=== PATIENT | female | born 1975 | race Caucasian/White ===

== ENCOUNTER 2021-04-16 13:13 | Emergency (ER) | payer BC ==
[~2021-04-16] VITALS: Ht 162.6 cm; Wt 159.0 kg
--- NOTE | 2021-04-16 13:44 | EKG ---
[address] [address] Test Date: 2021-04-16 Test Time: 13:24:37 Pat Name: WILLIAM FIELD Department: Room: Gender: F Nurse Researcher: MIC : 1975 Requested By: GLORIA AMBROCIO Order Number: [id number] Reading MD: Jeromy No MD Measurements Intervals Rudd Rate: 74 P: 34 VA: 164 QRS: 18 QRSD: 82 T: 62 QT: 380 QTc: 422 Interpretive Statements SINUS RHYTHM Electronically Signed On 04-18-2021 8:24:37 PET FEEDER by Jeromy No MD
[2021-04-16] MEDS ORDERED: ASPIRIN CHEWABLE 81 MG TABLET. PO ONE (13:45)
--- NOTE | 2021-04-16 13:45 | PHYS DOC ---
Past History Past Surgical History: , Tubal ligation Alcohol Use: None Adult General Chief Complaint Chief Complaint: CHEST PAIN HPI HPI Patient is a 46-year-old female presenting via POV for chest pain. Onset was approximately 1 hour prior. Patient reports she was cooking cinnamon rolls and waffles in her kitchen when she developed substernal chest tightness that "felt like someone was giving me a big hug". Nothing known made better or worse. Denies any short, ripping and/or tearing sensations. Reports episode lasted approximately 15 minutes before self resolving without intervention. Associated symptoms include diaphoresis, pallor, and nausea. Reports she took a full dose of aspirin and after discussing case with her , was transported to our facility for evaluation. On arrival, patient states she is anxious symptomatic but remains nervous. Admits she has primary care physician and has diagnosed history of hypothyroidism only but does not take medicine for this because she does not want to. Only major change in overall health was being diagnosed with COVID-19 1 month ago, she is unvaccinated. Denies any prior history of syncope with physical exertion, family history of early cardiac disease, or any tobacco, alcohol or illicit drug abuse Review of Systems Review of Systems Fourteen body systems of review of systems have been reviewed. See HPI for pertinent positives and negative responses, other whittaker all other systems are negative, non-pertinent or non-contributory Allergies Allergies Allergies Coded Allergies Type Severity Reaction Last Updated Verified No Known Drug Allergies 04/16/21 No Physical Exam Physical Exam Constitutional: Well developed, well nourished and morbidly obese, no acute distress, non-toxic appearance. HENT: Normocephalic, atraumatic, bilateral external ears normal, oropharynx moist, no oral exudates, nose normal. Eyes: PERRLA, EOMI, conjunctiva normal, no discharge. Neck: Normal range of motion, no tenderness, supple, no stridor. Cardiovascular: Heart rate regular, sinus rhythm, no murmurs rubs or gallops Lungs & Thorax: Bilateral breath sounds clear to auscultation Abdomen: Bowel sounds normal, soft and protuberant, no tenderness, no masses, no pulsatile masses. Nonsurgical abdomen, no peritoneal signs Skin: Warm, dry, no erythema, no rash. Back: No tenderness, no CVA tenderness. Extremities: No tenderness, no cyanosis, no clubbing, ROM intact, trace pitting edema to bilateral lower extremities and otherwise extremely massive lower extremities Neurologic: Alert and oriented X 3, grossly normal motor & sensory function, no focal deficits noted. Psychologic: Anxious affect and mood Current Patient Data Vital Signs Vital Signs Date Time Temp Pulse Resp B/P (MAP) Pulse Ox O2 Delivery O2 Flow Rate FiO2 04/16/21 13:25 98.1 83 20 165/102 (123) 100 Room Air Lab Results Laboratory Tests Test 04/16/21 13:22 White Blood Count 9.2 x10^3/uL Red Blood Count 4.54 x10^6/uL Hemoglobin 15.6 g/dL Hematocrit 45.1 % Mean Corpuscular Volume 99 fL Mean Corpuscular Hemoglobin 34 pg Mean Corpuscular Hemoglobin Concent 35 g/dL Red Cell Distribution Width 13.9 % Platelet Count 309 x10^3/uL Neutrophils (%) (Auto) 60 % Lymphocytes (%) (Auto) 32 % Monocytes (%) (Auto) 6 % Eosinophils (%) (Auto) 2 % Basophils (%) (Auto) 1 % Neutrophils # (Auto) 5.5 x10^3uL Lymphocytes # (Auto) 2.9 x10^3/uL Monocytes # (Auto) 0.5 x10^3/uL Eosinophils # (Auto) 0.1 x10^3/uL Basophils # (Auto) 0.1 x10^3/uL Sodium Level 135 mmol/L Potassium Level 4.5 mmol/L Chloride Level 102 mmol/L Carbon Dioxide Level 26 mmol/L Anion Gap 7 Blood Urea Nitrogen 13 mg/dL Creatinine 0.9 mg/dL Estimated GFR (Cockcroft-Gault) 67.4 Glucose Level 108 mg/dL Calcium Level 8.7 mg/dL Troponin I High Sensitivity 5 ng/L [id number] Natriuretic Peptide 136 pg/mL Current Medications Medications (Trade) Dose Ordered Sig/Esha Route PRN Reason Start Time Stop Time Status Last Admin Dose Admin Aspirin (Aspirin Chewable) 324 mg 1X ONCE PO 04/16/21 13:45 04/16/21 13:46 DC Ondansetron HCl (Zofran) 4 mg 1X ONCE IVP 04/16/21 14:30 04/16/21 14:31 DC 04/16/21 14:31 EKG EKG EKG ordered and interpreted by myself at 1330 hrs. as sinus rhythm at 74 bpm, unremarkable intervals, no axis deviation, no obvious ischemic findings, no STEMI Radiology/Procedures Radiology/Procedures Exam performed: One view chest. Indication: Reason: chest pain / Spl. Instructions: / History: Date of Service: 04/16/2021 1:46 PM Comparison: 2 views chest from 02/28/2011. Single AP upright portable view chest findings: Cardiomediastinal silhouette is within limits of normal. No acute infiltrates, effusion or pneumothorax is detected. The bony structures are normal. Impression: No acute cardiopulmonary process is detected. Electronically signed by: Jacqueline Guevara MD (04/16/2021 2:28 PM) [facility] Heart Score C/O Chest Pain: Yes HEART Score for Chest Pain: HEART Score for Chest Pain Response (Comments) Value History Slighlty/Non-Suspicious 0 ECG Normal 0 Age >45 - < 65 1 Risk Factors 1 or 2 Risk Factors 1 Troponin < Normal Limit 0 Total 2 Risk Factors: Risk Factors: DM, Current or recent (<one month) smoker, HTN, HLP, family history of CAD, obesity. Risk Scores: Risk Factors: DM, Current or recent (<one month) smoker, HTN, HLP, family history of CAD, obesity. Course & Med Decision Making Course & Med Decision Making ABCs unremarkable HPI physical exam and comprehensive ER work-up nonconcerning for any emergent or surgical issues Patient extremely anxious on arrival which is likely contributing to symptoms. Work-up otherwise unremarkable. Reviewed heart score. Patient morbidly obese with recent Covid infection otherwise no other acquired and/or modifiable risk factors Patient asymptomatic throughout entirety of ER visit. Joint decision made to discharge home with close PCP follow-up for likely need of provocative cardiac testing in outpatient setting. Patient aware this might be an acute presentation more concerning pathology and so, strict return precautions discussed prior to ER departure Dragon Disclaimer Dragon Disclaimer This electronic medical record was generated, in whole or in part, using a voice recognition dictation system. Departure Departure: Impression: Primary Impression: Chest pain Disposition: HOME / SELF CARE / HOMELESS Condition: STABLE Referrals: PCP,NO (PCP) Additional Instructions: You were seen for chest pain. Your workup did not show any acute abnormalities today, but does not indicate that you do not have underlying cardiovascular disease. You do need to follow up with your primary doctor and potentially a dosier operator for further evaluation and treatment. You should return to the ED if you develop worsening chest pain, shortness of breath, fever, abnormal sweating, leg swelling, or any other new or concerning symptoms. GLORIA AMBROCIO DO Apr 16, 2021 13:45
[2021-04-16 13:50] LABS: BASO # 0.1 x10^3/uL (0.0-0.2); BASO % 1 % (0-3); EOS # 0.1 x10^3/uL (0.0-0.7); EOS % 2 % (0-3); HEMATOCRIT 45.1 % (36.0-47.0); HEMOGLOBIN 15.6 g/dL (12.0-15.5); LYMPH # 2.9 x10^3/uL (1.0-4.8); LYMPH % 32 % (24-48); MEAN CORPUSCULAR HEMOGLOBIN 34 pg (25-35); MEAN CORPUSCULAR HGB CONC 35 g/dL (31-37); MEAN CORPUSCULAR VOLUME 99 fL (79-100); MONO # 0.5 x10^3/uL (0.0-1.1); MONO % 6 % (0-9); NEUT # 5.5 x10^3uL (1.8-7.7); NEUT % 60 % (31-73); PLATELET COUNT 309 x10^3/uL (140-400); RED BLOOD COUNT 4.54 x10^6/uL (3.50-5.40); RED CELL DISTRIBUTION WIDTH 13.9 % (11.5-14.5); WHITE BLOOD COUNT 9.2 x10^3/uL (4.0-11.0)
[2021-04-16 14:02] LABS: CALCIUM 8.7 mg/dL (8.5-10.1); CREATININE 0.9 mg/dL (0.6-1.0); GFR 67.4; POTASSIUM 4.5 mmol/L (3.5-5.1)
[2021-04-16] MEDS ORDERED: ONDANSETRON PF 4 MG/2 ML VIAL. IVP ONE (14:30)
--- NOTE | 2021-04-16 14:31 | RAD ---
Exam performed: One view chest. Indication: Reason: chest pain / Spl. Instructions: / History: Date of Service: 04/16/2021 1:46 PM Comparison: 2 views chest from 02/28/2011. Single AP upright portable view chest findings: Cardiomediastinal silhouette is within limits of normal. No acute infiltrates, effusion or pneumotho rax is detected. The bony structures are normal. Impression: No acute cardiopulmonary process is detected. Electronically signed by: Jacqueline Guevara MD (04/16/2021 2:28 PM) [facility]
[2021-04-16 14:36] VITALS: BP 163/103
== END 2021-04-16 15:13 | disposition home or self-care (01) ==
LOC: ER 13:13
DX: R07.89 Other chest pain (principal); E03.9 Hypothyroidism, unspecified; E66.01 Morbid (severe) obesity due to excess calories; Z68.44 Body mass index [BMI] 60.0-69.9, adult
CPT/HCPCS: 36415; 71045; 80048; 83880; 84484; 85025; 93005; 96374; 99285; J2405